=== PATIENT | female | born 1940 | race Caucasian/White ===

== ENCOUNTER 2016-09-20 09:41 | Emergency (ER) | payer MEDICARE, MEDICAID ==
[2016-09-20 09:59] VITALS: BP 153/53
--- NOTE | 2016-09-20 10:14 | UC ---
Minor Trauma HPI - HPI Summary HPI Summary: Pt presents with caregiver from half[place]way. Caregiver reports that pt fell on public bus from standing position onto buttocks at 0815 this morning. Denies any pain, swelling, bleeding, swelling, or decreased ROM. - History of Current Complaint Chief Complaint: UCGeneralIllness Stated Complaint: S/P FALL Time Seen by Provider: 09/20/16 10:05 Hx Obtained From: Family/Electrician Front Hx Last Menstrual Period: n/a ?: No Onset/Duration: Sudden Onset Severity Currently: None Mechanism Of Injury: Fall From A Standing Position Aggravating Factor(s): Nothing - Allergies/Home Medications Allergies/Adverse Reactions: Allergies Allergy/AdvReac Type Severity Reaction Status Date / Time No Known Allergies Allergy Verified 09/20/16 09:56 PMH/Surg Hx/FS Hx/Imm Hx Previously Healthy: Yes Endocrine History Of: Reports: Thyroid Disease Cardiovascular History Of: Reports: Cardiac Disorders - pacemaker, A fib, moderat enlarged heart. GI/ History Of: Denies: Gastroesophageal Reflux - Surgical History Surgical History: Yes Surgery Procedure, Year, and Place: D and C 1983, 1988, pacemaker 2007, laminectomy 2007 for cyst - Family History Known Family History: Positive: Unknown, Other - colon cancer - Social History Occupation: Disabled Lives: [facility] Alcohol Use: None Substance Use Type: None Smoking Status (MU): Never Smoked Tobacco Have You Smoked in the Last Year: No - Immunization History Most Recent Influenza Vaccination: 2014 Review of Systems Constitutional: Negative Skin: Rash - buttocks Eyes: Negative ENT: Negative Respiratory: Negative Cardiovascular: Negative Gastrointestinal: Negative Genitourinary: Negative Motor: Decreased ROM - bilateral lower extremities Neurovascular: Negative Musculoskeletal: Decreased ROM - bilateral lower extremities Neurological: Negative Psychological: Negative All Other Systems Reviewed And Are Negative: Yes Physical Exam Triage Information Reviewed: Yes Appearance: Well-Appearing Vital Signs: Initial Vital Signs Temp 98.6 F 09/20/16 09:49 Pulse 69 09/20/16 09:49 Resp 20 09/20/16 09:49 BP 153/53 09/20/16 09:49 Pulse Ox 97 09/20/16 09:49 Vital Signs Reviewed: Yes Respiratory Exam: Normal Cardiovascular Exam: Normal, Other - has a pacemaker left upper anterior chest wall Musculoskeletal Exam: Other Musculoskeletal: Positive: Strength Limited @ - bilateral lower extremities, ROM Limited @ - bialteral lower extremities Neurological Exam: Other Neurological: Positive: Other: - MR Psychological Exam: Other Psychological: Positive: Other: - stabel as per pre-existing Skin: Positive: Other - minor erythema buttocks, barrier cream applied prior to examination Minor Trauma Course/Dx - Course Course Of Treatment: continue to monitor for bruising, change in function, Decrease in ROM and/or complaints of increasing pain. - Differential Dx/Diagnosis Differential Diagnosis/HQI/PQRI: Contusion(s) Provider Diagnoses: contusion buttocks s/p fall Discharge - Discharge Plan Condition: Stable Disposition: HOME Patient Education Materials: Contusion in Adults (ED) Referrals: Jaclyn Teran PA [Primary Care Provider] -
== END 2016-09-20 10:20 | disposition home or self-care (01) ==
LOC: UCCORT 09:41
DX: S30.0XXA Contusion of lower back and pelvis, initial encounter (principal); W19.XXXA Unspecified fall, initial encounter; Y93.89 Activity, other specified; Y92.811 Bus as the place of occurrence of the external cause; Z95.0 Presence of cardiac pacemaker; I48.91 Unspecified atrial fibrillation
CPT/HCPCS: 99212; G0463

== ENCOUNTER 2017-02-21 14:34 | Emergency (ER) | payer MEDICARE, MEDICAID ==
--- NOTE | 2017-02-21 15:11 | UC ---
Minor Trauma HPI - HPI Summary HPI Summary: 76 yo female fell out of WC earlier today c/o bilateral knee pain may have also hit head no LOC - History of Current Complaint Chief Complaint: UCLowerExtremity Stated Complaint: FALL-KNEE PAIN Time Seen by Provider: 02/21/17 14:44 Hx Obtained From: Patient, Family/Locker Operator Hx Last Menstrual Period: n/a Onset/Duration: Sudden Onset Onset Of Pain: Immediate Severity Initially: Mild Severity Currently: Mild Pain Intensity: 4 Pain Scale Used: 0-10 Numeric Mechanism Of Injury: Fall From Height Of: - fall from seated position Aggravating Factor(s): Nothing, Coughing - Allergies/Home Medications Allergies/Adverse Reactions: Allergies Allergy/AdvReac Type Severity Reaction Status Date / Time No Known Allergies Allergy Verified 09/20/16 09:56 PMH/Surg Hx/FS Hx/Imm Hx Endocrine History: Thyroid Disease Cardiovascular History: Hypertension GI/ History: Gastroesophageal Reflux Psychological History: Anxiety, Depression, Other - MR Other Psychological History: MR - Surgical History Surgical History: Yes Surgery Procedure, Year, and Place: D and C 1983, 1988, pacemaker 2007, laminectomy 2007 for cyst - Family History Known Family History: Positive: Unknown, Other - colon cancer - Social History Alcohol Use: None Substance Use Type: None Smoking Status (MU): Never Smoked Tobacco Have You Smoked in the Last Year: No - Immunization History Most Recent Influenza Vaccination: 2014 Review of Systems Constitutional: Negative Skin: Negative Eyes: Negative ENT: Negative Respiratory: Negative Cardiovascular: Negative Gastrointestinal: Negative Genitourinary: Negative Motor: Negative Neurovascular: Negative Musculoskeletal: Arthralgia Neurological: Negative Psychological: Negative All Other Systems Reviewed And Are Negative: Yes Physical Exam Triage Information Reviewed: Yes Appearance: Well-Appearing, No Pain Distress, Well-Nourished Vital Signs: Initial Vital Signs Temp 99.1 F 02/21/17 14:39 Pulse 68 02/21/17 14:39 Resp 16 02/21/17 14:39 BP 170/116 02/21/17 14:39 Pulse Ox 98 02/21/17 14:39 Vital Signs Reviewed: Yes Eyes: Positive: Conjunctiva Clear, Other: - eomi/perrl ENT: Positive: Hearing grossly normal. Negative: Nasal congestion, Nasal drainage, Trismus, Muffled/hoarse voice Neck: Positive: Supple, Nontender, No Lymphadenopathy Respiratory: Positive: Lungs clear, Normal breath sounds, No respiratory distress Cardiovascular: Positive: RRR, No Murmur Musculoskeletal: Positive: ROM Intact, No Edema, Other: - able to ambulate without pain Skin Exam: Normal Minor Trauma Course/Dx - Differential Dx/Diagnosis Provider Diagnoses: bilateral knee contusions Discharge - Discharge Plan Condition: Stable Disposition: HOME Patient Education Materials: Contusion in Adults (ED) Referrals: Jaclyn Teran PA [Primary Care Provider] - 2 Days () Additional Instructions: bp high here recheck in 2 days with PMD
[2017-02-21 15:13] VITALS: BP 121/64
== END 2017-02-21 15:20 | disposition home or self-care (01) ==
LOC: UCCORT 14:34
DX: S80.02XA Contusion of left knee, initial encounter (principal); S80.01XA Contusion of right knee, initial encounter; W05.0XXA Fall from non-moving wheelchair, initial encounter; Y93.9 Activity, unspecified; Y92.9 Unspecified place or not applicable; E07.9 Disorder of thyroid, unspecified; I10 Essential (primary) hypertension; K21.9 Gastro-esophageal reflux disease without esophagitis; F41.9 Anxiety disorder, unspecified; F32.9 Major depressive disorder, single episode, unspecified; F79 Unspecified intellectual disabilities; Z95.0 Presence of cardiac pacemaker
CPT/HCPCS: 99212; G0463

== ENCOUNTER 2017-05-12 11:01 | Emergency (ER) | payer MEDICARE, MEDICAID ==
--- NOTE | 2017-05-12 11:39 | UC ---
Minor Trauma HPI - HPI Summary HPI Summary: Fall out of wheelchair, found on floor. No obvious injury. - History of Current Complaint Chief Complaint: UCGeneralIllness Stated Complaint: S/P FALL Hx Obtained From: Patient, Family/Gear Technician ?: No Onset/Duration: Sudden Onset - found on floor at 10:15. Patient denies injury or pain. Severity Currently: None Mechanism Of Injury: Blunt Trauma - fall from wheelchair. Aggravating Factor(s): Nothing Alleviating Factor(s): Nothing Associated Signs And Symptoms: Negative: Loss Of Consciousness, Ecchymosis, Swelling - Risk Factors Penetrating Injury Risk Factors: Negative - Allergies/Home Medications Allergies/Adverse Reactions: Allergies Allergy/AdvReac Type Severity Reaction Status Date / Time Adhesive Tape AdvReac Unknown Verified 05/12/17 11:21 Reaction Details Metal Jewelry AdvReac Unknown Uncoded 05/12/17 11:21 Reaction Details Home Medications: Home Medications Acetaminophen TAB* [Tylenol TAB*] 650 mg PO Q4H PRN 05/12/17 [History Confirmed 05/12/17] Al Hydrox/Mg Hydrox/Americo BULK* [Mylanta - BULK BOT*] 30 ml PO Q4H PRN 05/12/17 [ History Confirmed 05/12/17] Aspirin Low Dose CHEW TAB* [Aspirin Low Dose TAB*] 81 mg PO 30 05/12/17 [ History Confirmed 05/12/17] Calcium Carbonate-Cholecalcife [Calcium 600 + D 600-200 mg-Unit] 1 tab PO 629, 199905/12/17 [History Confirmed 05/12/17] Cholecalciferol [Vitamin D 400] 800 unit PO 30 05/12/17 [History Confirmed 10/27] Digoxin TAB* [Lanoxin TAB*] 0.125 mg PO 30 05/12/17 [History Confirmed ] Docusate CAP* [Colace Cap*] 100 mg PO 629,199905/12/17 [History Confirmed 10/27] Esomeprazole(NF) [NexIUM(NF)] 40 mg PO 30 05/12/17 [History Confirmed 05/12/17 ] Fesoterodine (NF) [Toviaz (NF)] 4 mg PO 30 05/12/17 [History Confirmed ] GuaiFENesin DM* [Robitussin DM*] 10 ml PO Q4H PRN 05/12/17 [History Confirmed ] Hydrocortisone 1% CREAM* [Hytone Cream 1%*] 1 applic TOPICAL BID PRN 05/12/17 [ History Confirmed 05/12/17] Hydrocortisone SUPP* [Anusol HC Supp*] 1 applic MI BID PRN 05/12/17 [History Confirmed 05/12/17] Ibandronate TAB(NF) [Boniva(NF)] 150 mg PO Q30D 05/12/17 [History Confirmed 10/27] Levothyroxine TAB* [Synthroid TAB*] 125 mcg PO 1500 05/12/17 [History Confirmed 05/12/17] LoraTADine TAB(NF) [Claritin 10 MG TAB(NF)] 10 mg PO 30 05/12/17 [History Confirmed 05/12/17] Meloxicam(NF) [Mobic(NF)] 7.5 [place] 6[address]05/12/17 [History Confirmed 05/12/17] Metoprolol Succinate XL TAB* [Toprol XL TAB*] 100 mg PO 199905/12/17 [History Confirmed 05/12/17] Multivitamins/Minerals TAB* [Thera M Plus TAB*] 1 [place] [address]/12/17 [History Confirmed 05/12/17] Mupirocin 2% OINT* [Bactroban 2 % Oint*] 1 applic TOPICAL TID PRN 05/12/17 [ History Confirmed 05/12/17] Pseudoephedrine TAB* [Sudafed TAB*] 30 mg PO Q4H PRN 05/12/17 [History Confirmed 05/12/17] Sertraline* [Zoloft*] 50 mg PO 199905/12/17 [History Confirmed 05/12/17] Sertraline* [Zoloft*] 100 mg PO 199905/12/17 [History Confirmed 05/12/17] Simvastatin TAB(NF) [Zocor(NF)] 20 mg PO 199905/12/17 [History Confirmed ] clonazePAM TAB(*) [KlonoPIN TAB(*)] 0.5 mg PO BID 05/12/17 [History Confirmed ] PMH/Surg Hx/FS Hx/Imm Hx Endocrine History: Other - Osteoporosis. Other Endocrine History: Osteoporosis Cardiovascular History: Atrial Fibrillation Neurological History: Other - Mental retardation. Other Neurological History: Mental retardation - Surgical History Surgical History: Yes - Pacemaker - Family History Known Family History: Positive: Unknown - Social History Occupation: Disabled Lives: Long-Term Alcohol Use: None Substance Use Type: None Smoking Status (MU): Unknown if Ever Smoked Have You Smoked in the Last Year: No - Immunization History Most Recent Influenza Vaccination: 06/27/16 Most Recent Tetanus Shot: 03/01/15 Most Recent Pneumonia Vaccination: 07/13/16 Review of Systems All Other Systems Reviewed And Are Negative: Yes Physical Exam Triage Information Reviewed: Yes Appearance: Well-Appearing, No Pain Distress, Well-Nourished Vital Signs: Initial Vital Signs Temp 98.7 F 05/12/17 11:10 Pulse 64 05/12/17 11:10 Resp 18 05/12/17 11:10 Pulse Ox 100 05/12/17 11:10 Vital Signs Reviewed: Yes Neck exam: Normal Respiratory Exam: Normal Cardiovascular Exam: Normal Abdominal Exam: Normal Bowel Sounds: Positive: Present Musculoskeletal: Positive: ROM Limited @ - Neck with poor posture in wheelchair. Neurological Exam: Normal Psychological Exam: Normal Skin Exam: Normal Minor Trauma Course/Dx - Differential Dx/Diagnosis Differential Diagnosis/HQI/PQRI: Abrasion(s), Contusion(s), Strain Provider Diagnoses: Minor fall, no injury Discharge - Discharge Plan Condition: Stable Disposition: HOME Patient Education Materials: Fall Prevention (ED)
== END 2017-05-12 12:11 | disposition home or self-care (01) ==
LOC: EDBD → UCCORT 11:01 → MERGE 11:01 → UCCORT 12:11
DX: Z03.89 Encounter for observation for other suspected diseases and conditions ruled out (principal); W05.0XXA Fall from non-moving wheelchair, initial encounter; Y93.9 Activity, unspecified; Y92.9 Unspecified place or not applicable; Y99.9 Unspecified external cause status; M81.0 Age-related osteoporosis without current pathological fracture; I48.91 Unspecified atrial fibrillation; F79 Unspecified intellectual disabilities; Z95.0 Presence of cardiac pacemaker
CPT/HCPCS: 99202; G0463

== ENCOUNTER 2017-05-27 12:37 | Emergency (ER) | payer MEDICARE, MEDICAID ==
--- NOTE | 2017-05-27 14:55 | UC ---
Skin Complaint HPI - HPI Summary HPI Summary: patient in a correction have a rash on buttocks and hips - History of Current Complaint Chief Complaint: UCSkin Time Seen by Provider: 05/27/17 14:48 Stated Complaint: RASH Hx Obtained From: Family/Regional Economic Liaison Hx From Patient Unobtainable Due To: Altered Mental Status - MR Hx Last Menstrual Period: n/a ?: No Onset/Duration: Gradual Onset, Lasting Days Timing: Constant Onset Severity: Mild Current Severity: Mild Location: Discrete - right buttock and both hops Aggravating: Nothing Alleviating: Nothing Associated Signs & Symptoms: Positive: Rash - red circular dry rash with central clearing--multiple spots largest about quarter size - Allergy/Home Medications Allergies/Adverse Reactions: Allergies Allergy/AdvReac Type Severity Reaction Status Date / Time Adhesive Tape AdvReac Unknown Verified 05/27/17 14:56 Reaction Details Metal Jewelry AdvReac Unknown Uncoded 05/27/17 14:56 Reaction Details Review of Systems Constitutional: Negative Skin: Rash Eyes: Negative ENT: Negative Respiratory: Negative Cardiovascular: Negative Gastrointestinal: Negative Genitourinary: Negative Motor: Negative Neurovascular: Negative Musculoskeletal: Negative Neurological: Negative Psychological: Negative Is Patient Immunocompromised?: No All Other Systems Reviewed And Are Negative: Yes PMH/Surg Hx/FS Hx/Imm Hx Previously Healthy: No Endocrine History: Dyslipidemia Cardiovascular History: Cardiac Disease, Congestive Heart Failure Respiratory History: Asthma GI/ History: Gastroesophageal Reflux Neurological History: Dementia, Other Other Neurological History: Developmentally Disabled Psychological History: Anxiety, Depression - Surgical History Surgical History: Yes - Pacemaker Surgery Procedure, Year, and Place: D and C 1983, 1988, pacemaker 2007, laminectomy 2007 for cyst - Family History Known Family History: Positive: Unknown, Other - colon cancer - Social History Occupation: Disabled Lives: [facility] Alcohol Use: None Substance Use Type: None Smoking Status (MU): Unknown if Ever Smoked Have You Smoked in the Last Year: No - Immunization History Most Recent Influenza Vaccination: 06/27/16 Most Recent Tetanus Shot: 03/01/15 Most Recent Pneumonia Vaccination: 07/13/16 Physical Exam Triage Information Reviewed: Yes Completion Of Physical Exam Limited Due To: Dementia, Other - MR Appearance: No Pain Distress, Well-Nourished, Ill-Appearing - Chronic disability Vital Signs Reviewed: Yes Eye Exam: Normal Eyes: Positive: Conjunctiva Clear ENT Exam: Normal ENT: Positive: Normal ENT inspection, Hearing grossly normal, TMs normal. Negative: Nasal congestion, Nasal drainage, Trismus, Muffled/hoarse voice Neck exam: Normal Neck: Positive: Supple, Nontender Respiratory Exam: Normal Respiratory: Positive: Chest non-tender, No respiratory distress, No accessory muscle use Cardiovascular Exam: Normal Cardiovascular: Positive: Pulses Normal, Brisk Capillary Refill Musculoskeletal Exam: Normal Musculoskeletal: Positive: Strength Intact, ROM Intact, No Edema Neurological Exam: Other Neurological: Positive: Other: - Normal to her baseline Psychological Exam: Other Psychological: Positive: Decreased Age Appropriate Behavior, Other: - normal to her baseline Skin Exam: Other Skin: Positive: Other - red dry circular rash with central clearing left buttock and hip Course/Dx - Course Course Of Treatment: lotrisone bid for up to 2 weeks, mild soap and water wash follow with pcp - Differential Diagnoses - Skin Complaint Differential Diagnoses: Cellulitis, Contact Dermatitis, Impetigo, Local Allergic Reaction, Scabies, Tinea - Diagnoses Provider Diagnoses: Tinea left buttock Discharge - Discharge Plan Condition: Stable Disposition: HOME Prescriptions: Clotrimazole/Betamethasone* [Lotrisone Cream*] 1 applic TOPICAL BID #60 gm Patient Education Materials: Tinea Corporis (ED) Referrals: Jaclyn Teran PA [Primary Care Provider] - If Needed
[2017-05-27 14:56] VITALS: BP 144/111
== END 2017-05-27 15:03 | disposition home or self-care (01) ==
LOC: UCCORT 12:37
DX: B35.4 Tinea corporis (principal); E78.5 Hyperlipidemia, unspecified; F03.90 Unspecified dementia, unspecified severity, without behavioral disturbance, psychotic disturbance, mood disturbance, and anxiety; Z91.048 Other nonmedicinal substance allergy status; Z95.0 Presence of cardiac pacemaker
CPT/HCPCS: 99212; G0463

== ENCOUNTER 2017-08-25 15:50 | Emergency (ER) | payer MEDICARE, MEDICAID ==
[2017-08-25 16:13] VITALS: BP 139/48
--- NOTE | 2017-08-25 16:24 | UC ---
Hip/Pelvis Pain - HPI Summary HPI Summary: fell/lowered to floor by a staff member at the alf about 1/2 hour prior to arrival. gait steady does have some pain with palpation - History Of Current Complaint Chief Complaint: UCLowerExtremity Stated Complaint: FALL (HX OSTEOPOROSIS) Time Seen by Provider: 08/25/17 16:04 Hx Obtained From: Patient Hx Last Menstrual Period: n/a ?: No Mechanism Of Injury: fall Onset/Duration: Sudden Onset, Lasting Hours - 1, Still Present Timing: Constant Severity Initially: Mild Location: Discrete At: - right hip Character Of Pain: Unable To Describe Aggravating Factor(s): Nothing Alleviating Factor(s): Nothing Associated Signs And Symptoms: Positive: Negative - Allergies/Home Medications Allergies/Adverse Reactions: Allergies Allergy/AdvReac Type Severity Reaction Status Date / Time Adhesive Tape AdvReac Unknown Verified 08/25/17 15:57 Reaction Details Metal Jewelry AdvReac Unknown Uncoded 08/25/17 15:57 Reaction Details Home Medications: Home Medications Alendronate Sodium [Fosamax-] 70 mg PO WEEKLY 08/25/17 [History Confirmed ] Aspirin [Aspirin 81 MG TAB] 81 mg PO DAILY 08/25/17 [History Confirmed 08/25/17] Calcium Carbonate-Cholecalcife [Calcium 600 + D 600-200 mg-Unit] 1 tab PO DAILY 08/25/17 [History Confirmed 08/25/17] Cholecalciferol TAB* [Vitamin D TAB*] 400 unit PO DAILY 08/25/17 [History Confirmed 08/25/17] Digoxin TAB* [Lanoxin TAB*] 0.125 mg PO DAILY 08/25/17 [History Confirmed ] Docusate CAP* [Colace Cap*] 100 mg PO BID 08/25/17 [History Confirmed 08/25/17] Docusate CAP* [Colace Cap*] 200 mg PO DAILY 08/25/17 [History Confirmed 08/25/17 ] Esomeprazole Magnesium [Nexium] 40 mg PO DAILY 08/25/17 [History Confirmed 08/25] Fesoterodine (NF) [Toviaz (NF)] 4 mg PO DAILY 08/25/17 [History Confirmed ] Levothyroxine TAB* [Synthroid TAB*] 125 mcg PO DAILY 08/25/17 [History Confirmed 08/25/17] Loratadine [Claritin 10 MG CAP] 10 mg PO DAILY 08/25/17 [History Confirmed 08/25] Magnesium Hydroxide LIQ* [Milk of Magnesia LIQ*] 30 ml PO BID PRN 08/25/17 [ History Confirmed 08/25/17] Meloxicam 7.5 mg PO DAILY 08/25/17 [History Confirmed 08/25/17] Metoprolol Succinate [Metoprolol Succinate ER] 100 mg PO DAILY 08/25/17 [ History Confirmed 08/25/17] Multivitamins/Minerals TAB* [Theragran/minerals TAB*] 1 tab PO DAILY 08/25/17 [ History Confirmed 08/25/17] Sertraline* [Zoloft*] 150 mg PO BEDTIME 08/25/17 [History Confirmed 08/25/17] Simvastatin [Flolipid] 20 mg PO DAILY 08/25/17 [History Confirmed 08/25/17] clonazePAM TAB(*) [KlonoPIN TAB(*)] 0.5 mg PO BID 08/25/17 [History Confirmed ] PMH/Surg Hx/FS Hx/Imm Hx Previously Healthy: No - MR/DD Endocrine History: Hypothyroidism, Dyslipidemia Cardiovascular History: Hypertension, Atrial Fibrillation GI/ History: Gastroesophageal Reflux - Surgical History Surgical History: Yes Surgery Procedure, Year, and Place: D and C 1983, 1988, pacemaker 2007, laminectomy 2007 for cyst - Family History Known Family History: Positive: Unknown, Other - colon cancer - Social History Occupation: Disabled Lives: [facility] Alcohol Use: None Substance Use Type: None Smoking Status (MU): Unknown if Ever Smoked Have You Smoked in the Last Year: No - Immunization History Most Recent Influenza Vaccination: 06/26 Most Recent Tetanus Shot: 03/01/15 Most Recent Pneumonia Vaccination: 07/13/16 Review of Systems Constitutional: Negative Skin: Negative Eyes: Negative ENT: Negative Respiratory: Negative Cardiovascular: Negative Gastrointestinal: Negative Genitourinary: Negative Motor: Negative Neurovascular: Negative Musculoskeletal: Arthralgia - lowered to floor on to right hip/pelvis her to get evaluated Neurological: Negative Psychological: Negative Is Patient Immunocompromised?: No All Other Systems Reviewed And Are Negative: Yes Physical Exam Triage Information Reviewed: Yes Appearance: Well-Appearing - baseline, No Pain Distress, Well-Nourished Vital Signs: Initial Vital Signs Temp 98.9 F 08/25/17 15:57 Pulse 64 08/25/17 15:57 Resp 18 08/25/17 15:57 BP 139/48 08/25/17 15:57 Pulse Ox 100 08/25/17 15:57 Vital Signs Reviewed: Yes Eye Exam: Normal Eyes: Positive: Conjunctiva Clear ENT Exam: Normal ENT: Positive: Normal ENT inspection, Hearing grossly normal. Negative: Nasal congestion, Nasal drainage, TMs normal, Trismus, Muffled voice, Hoarse voice, Dental tenderness, Sinus tenderness Dental Exam: Normal Neck exam: Normal Neck: Positive: Supple, Nontender, No Lymphadenopathy Respiratory Exam: Normal Respiratory: Positive: Chest non-tender, Lungs clear, Normal breath sounds, No respiratory distress, No accessory muscle use Cardiovascular Exam: Normal Cardiovascular: Positive: RRR, No Murmur, Pulses Normal, Brisk Capillary Refill Abdominal Exam: Normal Abdomen Description: Positive: Nontender, No Organomegaly, Soft Bowel Sounds: Positive: Present Musculoskeletal Exam: Normal Musculoskeletal: Positive: Strength Intact, ROM Intact, No Edema Neurological Exam: Normal Neurological: Positive: Alert, Muscle Tone Normal Psychological Exam: Normal Skin Exam: Normal Diagnostics - Radiology No standard instances Xray Interpretation: No Acute Changes Radiology Interpretation Completed By: ED Physician, Radiologist Hip Injury Course/Dx - Course Course Of Treatment: tylenol ice follow with pcp prn - Differential Dx/Diagnosis Provider Diagnoses: Contusion right hip Discharge - Discharge Plan Condition: Stable Disposition: HOME Patient Education Materials: Fall Prevention for Older Adults (ED), Hip Contusion (ED) Referrals: Jaclyn Teran PA [Primary Care Provider] - 1 Day
--- NOTE | 2017-08-25 17:28 | RAD ---
INDICATION: Fall. Pain. COMPARISON: Right hip May 28, 2015 TECHNIQUE: An AP view of the pelvis and AP views of the hip in neutral and abducted position were obtained FINDINGS: Bones: There are no acute bony findings. Joint spaces: The hips articulate normally. The joint spaces are preserved. SI joints/symphysis: The SI joints and symphysis are intact. Other: None IMPRESSION: NO ACUTE BONY FINDINGS.
== END 2017-08-25 17:45 | disposition home or self-care (01) ==
LOC: UCCORT 15:50
DX: S70.01XA Contusion of right hip, initial encounter (principal); W19.XXXA Unspecified fall, initial encounter; Y93.9 Activity, unspecified; Y92.129 Unspecified place in nursing home as the place of occurrence of the external cause; Y99.9 Unspecified external cause status
CPT/HCPCS: 73523; 99212; G0463

== ENCOUNTER 2017-11-16 18:55 | Emergency (ER) | payer MEDICARE, MEDICAID ==
[2017-11-16 20:09] VITALS: BP 142/70
--- NOTE | 2017-11-16 20:22 | UC ---
Throat Pain/Nasal Edson HPI - HPI Summary HPI Summary: Pt is accompanied by caregiver. cutter and edge trimmer reports sudden onset of nasal congestion, cough, sore throat and raspy voice beginning this morning. - History of Current Complaint Chief Complaint: UCRespiratory Stated Complaint: COUGH, NO VOICE Time Seen by Provider: 11/16/17 20:17 Hx Obtained From: Family/Binman Hx Last Menstrual Period: n/a ?: No Onset/Duration: Sudden Onset, Lasting Hours, Still Present Severity: Mild Pain Intensity: 0 Cough: Nonproductive Associated Signs & Symptoms: Positive: Dysphagia, Hoarseness - Epiglottits Risk Factors Epiglottis Risk Factors: Sudden Onset - Allergies/Home Medications Allergies/Adverse Reactions: Allergies Allergy/AdvReac Type Severity Reaction Status Date / Time Adhesive Tape AdvReac Unknown Verified 11/16/17 20:06 Reaction Details Metal Jewelry AdvReac Unknown Uncoded 11/16/17 20:06 Reaction Details Home Medications: Home Medications Fesoterodine (NF) [Toviaz (NF)] 4 mg PO DAILY 11/16/17 [History Confirmed ] PMH/Surg Hx/FS Hx/Imm Hx Previously Healthy: No - NO see PMH Cardiovascular History: Cardiac Disease - Surgical History Surgical History: Yes Surgery Procedure, Year, and Place: D and C 1983, 1988, pacemaker 2007, laminectomy 2007 for cyst - Family History Known Family History: Positive: Unknown, Other - colon cancer - Social History Occupation: Disabled Lives: Assisted Alcohol Use: None Substance Use Type: None Smoking Status (MU): Unknown if Ever Smoked Have You Smoked in the Last Year: No - Immunization History Most Recent Influenza Vaccination: 06/26 Most Recent Tetanus Shot: 03/01/15 Most Recent Pneumonia Vaccination: 07/13/16 Review of Systems Constitutional: Negative Skin: Negative Eyes: Negative ENT: Sore Throat, Sinus Congestion Respiratory: Cough Cardiovascular: Negative Gastrointestinal: Negative Motor: Negative Neurovascular: Negative Musculoskeletal: Negative Neurological: Negative Psychological: Negative Is Patient Immunocompromised?: No All Other Systems Reviewed And Are Negative: Yes Physical Exam Triage Information Reviewed: Yes Appearance: Well-Appearing Vital Signs: Initial Vital Signs Temp 98 F 11/16/17 19:59 Pulse 79 11/16/17 19:59 Resp 20 11/16/17 19:59 BP 142/70 11/16/17 19:59 Pulse Ox 95 11/16/17 19:59 Vital Signs Reviewed: Yes Eye Exam: Normal ENT Exam: Other ENT: Positive: Pharyngeal erythema, Nasal congestion Dental Exam: Normal Neck exam: Normal Respiratory Exam: Normal Respiratory: Positive: Lungs clear Cardiovascular Exam: Normal Musculoskeletal Exam: Normal Neurological Exam: Normal Psychological Exam: Normal Skin Exam: Normal Throat Pain/Nasal Course/Dx - Differential Dx/Diagnosis Differential Diagnosis/HQI/PQRI: Influenza, Pharyngitis, URI Provider Diagnoses: URI Discharge - Discharge Plan Condition: Stable Disposition: HOME Patient Education Materials: Viral Syndrome (ED) Referrals: Jaclyn Teran PA [Primary Care Provider] - If Needed Additional Instructions: Please use Eric PEREZ as needed.
== END 2017-11-16 20:36 | disposition home or self-care (01) ==
LOC: UCCORT 18:55
DX: J06.9 Acute upper respiratory infection, unspecified (principal)
CPT/HCPCS: 99212; G0463

== ENCOUNTER 2018-05-08 20:37 | Emergency (ER) | payer MEDICARE, MEDICAID ==
--- NOTE | 2018-05-08 21:04 | ED ---
Respiratory - HPI Summary HPI Summary: A 77 y/o female JUAN ANTONIO presents to ED s/p choking on foreign body. In the ED room , the patient has a pulse of 73 BPM, O2 saturation of 95% and blood pressure of 137/59. As per nurse, EMS stated that the patient was sitting down eating a steak dinner when she accidentally started choking on a piece. As per triage, "Pt was with fdc staff a local restaurant when she started choking while eating steak. Pt without resp difficulty, drooling or diff swallowing at present. Pt presents at baseline per fdc staff". According to the patient, she has a headache. Patient is a poor historian and not answering the MD's questions. As per witness (care staff), the patient was otherwise fine until she started choking on her food. They were eating their food when suddenly she started choking and spiting up material through nose and mouth. She was concerned and brought her here. - History of Current Complaint Chief Complaint: EDUpperRespComplaint Stated Complaint: COUGH Time Seen by Provider: 05/08/18 20:49 Hx Obtained From: EMS, Other: - Nurse Onset/Duration: Sudden Onset, Lasting Minutes Timing: Constant Current Severity: None Pain Intensity: 0 Sputum Amount: None Aggravating Factor(s): Nothing Alleviating Factor(s): Nothing Associated Signs and Symptoms: Negative - Allergy/Home Medications Allergies/Adverse Reactions: Allergies Allergy/AdvReac Type Severity Reaction Status Date / Time Adhesive Tape AdvReac Unknown Verified 11/16/17 20:06 Reaction Details Metal Jewelry AdvReac Unknown Uncoded 11/16/17 20:06 Reaction Details PMH/Surg Hx/FS Hx/Imm Hx Endocrine/Hematology History: Reports: Hx Thyroid Disease - Hypothyroidism Cardiovascular History: Reports: Hx Hypertension - Surgical History Surgery Procedure, Year, and Place: D and C 1983, 1988, pacemaker 2007, laminectomy 2007 for cyst Infectious Disease History: No Infectious Disease History: Reports: 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 Denies: Hx Shingles, Traveled Outside the [place] in Last 30 Days - Family History Known Family History: Positive: Other - colon cancer - Social History Alcohol Use: None Substance Use Type: Reports: None Smoking Status (MU): Unknown if Ever Smoked Have You Smoked in the Last Year: No Review of Systems Negative: Fever Positive: Other - POSITIVE: Choking (RESOLVED) Positive: Headache All Other Systems Reviewed And Are Negative: Yes Physical Exam - Summary Physical Exam Summary: Appearance: Well appearing, no pain distress Skin: warm, dry, reflects adequate perfusion Head/face: normal Eyes: EOMI, EMILY ENT: normal Neck: supple, non-tender Respiratory: CTA, breath sounds present Cardiovascular: RRR, pulses symmetrical Abdomen: non-tender, soft Bowel: present Musculoskeletal: normal, strength/ROM intact Neuro: normal, sensory motor intact, A&Ox3 Triage Information Reviewed: Yes Vital Signs On Initial Exam: Initial Vitals Temp Pulse Resp BP Pulse Ox 98.4 F 72 16 137/59 95 05/08/18 20:44 05/08/18 20:44 05/08/18 20:44 05/08/18 20:44 05/08/18 20:44 Vital Signs Reviewed: Yes Diagnostics - Vital Signs Vital Signs Temp Pulse Resp BP Pulse Ox 05/08/18 20:44 98.4 F 72 16 137/59 95 - Laboratory Lab Statement: Any lab studies that have been ordered have been reviewed, and results considered in the medical decision making process. Disposition - Course Course Of Treatment: A 77 y/o female JUAN ANTONIO presents to ED s/p choking on foreign body. No laboratory scans or blood work was done. In the ED course, the patient recieved no medications. It was discussed with care staff who witnessed the choking incident that the patient was otherwise normal before the event. She stated that the patient seems normal and she feels fine now. In the ED room, the patient seems fine and her vitals are normal. Patient will be discharged with a diagnosis of choking. Patient is to follow up with PCP in 2-3 days. Patient is agreeable with this plan. - Differential Dx - Cardiopulmonary Differential Diagnoses - Cardiopulmonary: Other - choking episode - Diagnoses Provider Diagnoses: Choking Discharge - Sign-Out/Discharge Documenting (check all that apply): Patient Departure - DISCHARGE - Discharge Plan Condition: Stable Disposition: HOME Patient Education Materials: Esophageal Foreign Body (ED), Foreign Body in Pharynx (ED) Referrals: Jaclyn Teran PA [Primary Care Provider] - 3 Days Additional Instructions: FOLLOW UP WITH PRIMARY CARE IN 2-3 DAYS. RETURN TO ED FOR ANY NEW OR WORSENING SYMPTOMS. - Billing Disposition and Condition Condition: STABLE Disposition: Home - Attestation Statements Document Initiated by Scribe: Yes Documenting Scribe: Rush Joaquin Provider For Whom Scribe is Documenting (Include Credential): Juancho Ghotra Scribe Attestation: Rush Avila, scribed for Juancho Ghotra on 05/08/18 at 2144. Scribe Documentation Reviewed: Yes Provider Attestation: The documentation as recorded by the ettaibeRush accurately reflects the service I personally performed and the decisions made by Juancho hurtado
[2018-05-08 22:12] VITALS: BP 112/59
== END 2018-05-08 21:45 | disposition home or self-care (01) ==
LOC: ED 20:37
DX: R09.89 Other specified symptoms and signs involving the circulatory and respiratory systems (principal); R51 Headache
CPT/HCPCS: 99281

== ENCOUNTER 2018-06-05 12:09 | Emergency (ER) | payer MEDICARE, MEDICAID ==
[2018-06-05 13:18] VITALS: BP 132/68
--- NOTE | 2018-06-05 13:57 | UC ---
UC General HPI - HPI Summary HPI Summary: Patient presents from her [facility] with her financial aid coordinator. Patient is unable to give history due to her MR. Her financial aid coordinator notes that last Sunday the patient had some cloudy foul-smelling urine. As a result, a culture was sent and came back negative. Project Superintendent states that somewhere along the line there was some miscommunication and the patient's primary care called in an order for hydrocortisone cream to be applied to her external urethral and vaginal area. Project Superintendent states that patient has no rash or irritation to these areas. They have brought the patient here for a recheck and possibly get the order for the hydrocortisone cream discontinued. Project Superintendent again denies any associated rash any irritation to her genitourinary and rectal areas and states that the patient is fine. - History of Current Complaint Chief Complaint: UCGU Stated Complaint: SKIN COMPLAINT (CLARIFICATION FOR CREAM) Time Seen by Provider: 06/05/18 13:08 Hx Obtained From: Family/Project Superintendent Hx Last Menstrual Period: n/a Pain Intensity: 0 - Allergy/Home Medications Allergies/Adverse Reactions: Allergies Allergy/AdvReac Type Severity Reaction Status Date / Time Adhesive Tape AdvReac Unknown Verified 11/16/17 20:06 Reaction Details Metal Jewelry AdvReac Unknown Uncoded 11/16/17 20:06 Reaction Details Home Medications: Home Medications Acetaminophen TAB* [Tylenol TAB*] 650 mg PO Q4H PRN MDD 8 tabs 06/05/18 [ History Confirmed 06/05/18] Al Hydrox/Mg Hydrox/Americo BULK* [Mylanta - BULK BOT*] 15 ml PO Q4H PRN 06/05/18 [ History Confirmed 06/05/18] Alendronate Sodium [Fosamax-] 70 mg PO WEEKLY 06/05/18 [History Confirmed ] Aspirin 81 mg CHEW TAB* [Aspirin Low Dose TAB*] 81 mg PO DAILY 06/05/18 [ History Confirmed 06/05/18] Calcium Carbonate/Vitamin D3 [Calcium 600 + Vit D Tablet] 2 tab PO DAILY MDD 90mL 06/05/18 [History Confirmed 06/05/18] Cholecalciferol TAB* [Vitamin D TAB*] 800 unit PO DAILY 06/05/18 [History Confirmed 06/05/18] Clotrimazole/Betamethasone* [Lotrisone Cream*] 1 applic TOPICAL BID PRN [History Confirmed 06/05/18] Digoxin TAB* [Lanoxin TAB*] 0.125 mg PO DAILY 06/05/18 [History Confirmed ] Docusate CAP* [Colace Cap*] 200 mg PO DAILY 06/05/18 [History Confirmed 06/05/18 ] Esomeprazole(NF) [NexIUM(NF)] 40 mg PO DAILY 06/05/18 [History Confirmed ] Fesoterodine (NF) [Toviaz (NF)] 4 mg PO DAILY 06/05/18 [History Confirmed ] GuaiFENesin DM* [Robitussin DM*] 10 ml PO Q4H PRN MDD 40mL 06/05/18 [History Confirmed 06/05/18] Hydrocortisone 1% CREAM* [Hytone Cream 1%*] 1 applic TOPICAL BID PRN 06/05/18 [ History Confirmed 06/05/18] Hydrocortisone 2.5% CREAM(NF) 1 applic FL BID PRN 06/05/18 [History Confirmed ] Levothyroxine TAB* [Synthroid TAB*] 125 mcg PO DAILY 06/05/18 [History Confirmed 06/05/18] LoraTADine TAB(NF) [Claritin 10 MG TAB(NF)] 10 mg PO DAILY 06/05/18 [History Confirmed 06/05/18] Meloxicam(NF) [Mobic(NF)] 7.5 mg PO DAILY 06/05/18 [History Confirmed 06/05/18] Metoprolol Succinate XL TAB* [Toprol XL TAB*] 25 mg PO DAILY 06/05/18 [History Confirmed 06/05/18] Multivitamins/Minerals TAB* [Theragran/minerals TAB*] 1 tab PO DAILY 06/05/18 [ History Confirmed 06/05/18] Mupirocin 2% OINT* [Bactroban 2 % Oint*] 1 applic TOPICAL TID PRN 06/05/18 [ History Confirmed 06/05/18] Pseudoephedrine TAB* [Sudafed TAB*] 60 mg PO Q4H PRN MDD 8 tabs 06/05/18 [ History Confirmed 06/05/18] Sertraline* [Zoloft*] 50 mg PO DAILY 06/05/18 [History Confirmed 06/05/18] Sertraline* [Zoloft*] 100 mg PO DAILY 06/05/18 [History Confirmed 06/05/18] Simvastatin TAB(NF) [Zocor(NF)] 20 mg PO DAILY 06/05/18 [History Confirmed 06/05] clonazePAM TAB(*) [KlonoPIN TAB(*)] 0.5 mg PO BID 06/05/18 [History Confirmed ] PMH/Surg Hx/FS Hx/Imm Hx - Additional Past Medical History Additional PMH: MR, cardiac history with pacemaker/defibrillator, Thyroid disorder. - Surgical History Surgical History: Yes Surgery Procedure, Year, and Place: D and C 1983, 1988, pacemaker 2007, laminectomy 2007 for cyst. cataract surgery (bilateral) - Family History Known Family History: Positive: Other - colon cancer - Social History Occupation: Disabled Lives: [facility] Alcohol Use: None Substance Use Type: None Smoking Status (MU): Never Smoked Tobacco Have You Smoked in the Last Year: No - Immunization History Most Recent Influenza Vaccination: 06/26 Most Recent Tetanus Shot: 03/01/15 Most Recent Pneumonia Vaccination: 07/13/16 Vaccination Up to Date: Yes Review of Systems Is Patient Immunocompromised?: No All Other Systems Reviewed And Are Negative: No - Comments Additional Review of Systems Comments: Patient has history of MR and is unable to give any information. Her financial aid coordinator denies any fever or rash and states that patient is totally fine. Physical Exam Triage Information Reviewed: Yes Appearance: Well-Appearing Vital Signs: Initial Vital Signs Temp 98.5 F 06/05/18 13:02 Pulse 74 06/05/18 13:02 Resp 19 06/05/18 13:02 BP 147/112 06/05/18 13:02 Pulse Ox 99 06/05/18 13:02 Vital Signs Reviewed: Yes Eyes: Positive: Conjunctiva Clear ENT: Positive: Pharynx normal, TMs normal. Negative: Nasal congestion, Nasal drainage Neck: Positive: Supple, Nontender, No Lymphadenopathy Respiratory: Positive: Lungs clear, Normal breath sounds Cardiovascular: Positive: RRR, No Murmur Abdomen Description: Positive: Nontender, No Organomegaly, Soft, Other: - No rectal area irritation or rash. patient has no skin breakdown. Bowel Sounds: Positive: Present Pelvic Exam: Positive: External Exam Normal Musculoskeletal: Positive: ROM Intact Neurological: Positive: Alert - Per her baseline Psychological: Positive: Age Appropriate Behavior - per her baseline Skin Exam: Normal Skin: Negative: rashes Course/Dx - Course Course Of Treatment: Patient has no urethral, denies any vaginal or rectal irritation. Her physical exam is unremarkable. I am going to discontinue the order for topical hydrocortisone to her urethral and vaginal areas. Her caretakers may resume all her prior care and medications aside from the hydrocortisone. - Differential Dx - Multi-Symptom Provider Diagnoses: Normal exam Discharge - Sign-Out/Discharge Documenting (check all that apply): Patient Departure All imaging exams completed and their final reports reviewed: No Studies - Discharge Plan Condition: Stable Disposition: HOME Patient Education Materials: Normal Exam (ED) Referrals: Jaclyn Teran PA [Primary Care Provider] - If Needed Additional Instructions: DISCONTINUE THE HYDROCORTISONE FOR THE VULVOVAGINAL AREA. RESUME ALL OTHER PRIOR CARE/MEDICATIONS. - Billing Disposition and Condition Condition: STABLE Disposition: Home
== END 2018-06-05 14:15 | disposition home or self-care (01) ==
LOC: UCCORT 12:09
DX: Z00.00 Encounter for general adult medical examination without abnormal findings (principal); E07.9 Disorder of thyroid, unspecified; F79 Unspecified intellectual disabilities; Z95.810 Presence of automatic (implantable) cardiac defibrillator; Z91.048 Other nonmedicinal substance allergy status; Z79.82 Long term (current) use of aspirin
CPT/HCPCS: 99212; G0463

== ENCOUNTER 2018-07-01 09:21 | Emergency (ER) | payer MEDICARE, MEDICAID ==
[2018-07-01 10:22] VITALS: BP 100/54
--- NOTE | 2018-07-01 11:14 | RAD ---
Indication: Right foot pain. 3 views of the right foot demonstrates degenerative changes of the first metatarsophalangeal joint. There is no evidence of fracture. Inferior calcaneal spur is noted. No other fractures are identified. IMPRESSION: Degenerative changes of the first metatarsal phalangeal joint without fracture.
--- NOTE | 2018-07-01 11:43 | ED ---
Lower Extremity - HPI Summary HPI Summary: 77 yr old with MR points to right 1st MP as place where she had pain. No other history obtainable. Reportedly no trauma or falls. - History of Current Complaint Chief Complaint: UCLowerExtremity Stated Complaint: RIGHT FOOT PAIN Time Seen by Provider: 07/01/18 10:42 Hx Last Menstrual Period: n/a Pain Intensity: 3 - Allergies/Home Medications Allergies/Adverse Reactions: Allergies Allergy/AdvReac Type Severity Reaction Status Date / Time Adhesive Tape AdvReac Unknown Verified 07/01/18 10:14 Reaction Details Metal Jewelry AdvReac Unknown Uncoded 07/01/18 10:14 Reaction Details Home Medications: Home Medications Acetaminophen TAB* [Tylenol TAB*] 2 tab Q4HR PRN 07/01/18 [History Confirmed ] Alendronate Sodium 1 tab WEEKLY 07/01/18 [History Confirmed 07/01/18] Aspirin 81 mg CHEW TAB* 1 tab DAILY 07/01/18 [History Confirmed 07/01/18] Calcium Carbonate/Vitamin D3 [Calcium 600 + Vit D Tablet] 1 tab DAILY 07/01/18 [ History Confirmed 07/01/18] Cholecalciferol (Vitamin D3) [Vitamin D3] 1 tab DAILY 07/01/18 [History Confirmed 07/01/18] Digoxin TAB* [Lanoxin TAB*] 1 tab DAILY 07/01/18 [History Confirmed 07/01/18] Docusate CAP* [Colace Cap*] 2 cap QAM 07/01/18 [History Confirmed 07/01/18] Esomeprazole(NF) [Nexium(NF)] 1 tab DAILY 07/01/18 [History Confirmed 07/01/18] Fesoterodine (NF) [Toviaz (NF)] 1 tab DAILY 07/01/18 [History Confirmed 07/01/18 ] Levothyroxine TAB* [Synthroid 150 MCG TAB*] 1 tab DAILY 07/01/18 [History Confirmed 07/01/18] Loratadine 1 tab DAILY 07/01/18 [History Confirmed 07/01/18] Meloxicam 1 tab DAILY 07/01/18 [History Confirmed 07/01/18] Metoprolol Succinate XL TAB* [Toprol XL TAB*] 1 tab DAILY 07/01/18 [History Confirmed 07/01/18] Multivitamin [Multivitamins] 1 tab DAILY 07/01/18 [History Confirmed 07/01/18] Sertraline* [Zoloft*] 1 tab DAILY 07/01/18 [History Confirmed 07/01/18] Simvastatin 1 tab QPM 07/01/18 [History Confirmed 07/01/18] clonazePAM TAB(*) [Klonopin TAB(*)] 0.25 mg BID 07/01/18 [History Confirmed ] PMH/Surg Hx/FS Hx/Imm Hx Endocrine/Hematology History: Reports: Hx Thyroid Disease - Hypothyroidism Cardiovascular History: Reports: Hx Hypertension - Surgical History Surgery Procedure, Year, and Place: D and C 1983, 1988, pacemaker 2007, laminectomy 2007 for cyst. cataract surgery (bilateral) Infectious Disease History: No Infectious Disease History: Reports: 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 Denies: Hx Shingles, Traveled Outside the [place] in Last 30 Days - Family History Known Family History: Positive: Other - colon cancer - Social History Alcohol Use: None Substance Use Type: Reports: None Smoking Status (MU): Never Smoked Tobacco Have You Smoked in the Last Year: No Review of Systems Constitutional: Negative Positive: Other - right foot pain All Other Systems Reviewed And Are Negative: Yes Physical Exam Triage Information Reviewed: Yes Vital Signs On Initial Exam: Initial Vitals Temp Pulse Resp BP Pulse Ox 97.7 F 70 18 100/54 98 07/01/18 10:14 07/01/18 10:14 07/01/18 10:14 07/01/18 10:14 07/01/18 10:14 Vital Signs Reviewed: Yes Appearance: Positive: Well-Appearing, No Pain Distress Skin: Positive: Warm, Skin Color Reflects Adequate Perfusion Head/Face: Positive: Normal Head/Face Inspection Eyes: Positive: EOMI ENT: Positive: Normal ENT inspection Neck: Positive: Nontender Respiratory/Lung Sounds: Positive: Clear to Auscultation, Breath Sounds Present Cardiovascular: Positive: RRR. Negative: Murmur Abdomen Description: Negative: Distended Musculoskeletal: Positive: Normal, Strength/ROM Intact, Other - both feet symmetric, with symmetric pulse, color, size. No deformity. no tenderness. Neurological: Positive: Sensory/Motor Intact, Alert, Oriented to Person Place, Time, CN Intact II-III Psychiatric: Positive: Normal - Humble Coma Scale Best Eye Response: 4 - Spontaneous Best Motor Response: 6 - Obeys Commands Best Verbal Response: 5 - Oriented Coma Scale Total: 15 Diagnostics - Vital Signs Vital Signs Temp Pulse Resp BP Pulse Ox 07/01/18 10:14 97.7 F 70 18 100/54 98 - Laboratory Lab Statement: Any lab studies that have been ordered have been reviewed, and results considered in the medical decision making process. - Radiology foot right Xray Interpretation: Positive (See Comments) - DJD 1st MP joint. Radiology Interpretation Completed By: Radiologist Lower Extremity Course/Dx - Course Course Of Treatment: DJD 1st MP right foot. 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
== END 2018-07-01 11:50 | disposition home or self-care (01) ==
LOC: UCCORT 09:21
DX: M19.071 Primary osteoarthritis, right ankle and foot (principal); I10 Essential (primary) hypertension; E03.9 Hypothyroidism, unspecified; L23.0 Allergic contact dermatitis due to metals; L23.1 Allergic contact dermatitis due to adhesives; Z95.0 Presence of cardiac pacemaker; Z79.82 Long term (current) use of aspirin
CPT/HCPCS: 99212; G0463

== ENCOUNTER 2018-08-18 13:00 | Emergency (ER) | payer MEDICARE, MEDICAID ==
[2018-08-18 13:27] VITALS: BP 131/75
--- NOTE | 2018-08-18 13:35 | UC ---
UC General HPI - HPI Summary HPI Summary: Patient is a 77 year old woman, resident of [facility] who present today to the urgent care with her caregiver JOHN after she sustained a fall at the facility this morning. She usually uses a walker to walk that she was found laying down in her room. She has severe intellectual disability , so most of the history is obtained by the caregiver . She points to pain in her left hip denies any pain anywhere else, no other symptoms reported. No fever or chills reported - History of Current Complaint Chief Complaint: UCGeneralIllness Stated Complaint: S/P FALL Time Seen by Provider: 08/18/18 13:21 Hx Obtained From: Family/Supervisor [employer] - Her caregiver, JOHN Hx Last Menstrual Period: n/a Pain Intensity: 0 - Allergy/Home Medications Allergies/Adverse Reactions: Allergies Allergy/AdvReac Type Severity Reaction Status Date / Time No Known Allergies Allergy Verified 08/04/18 15:20 PMH/Surg Hx/FS Hx/Imm Hx - Additional Past Medical History Additional PMH: Severe intellectual disability Atrial fibrillation Hypertension Hypothyroidism Hyperlipidemia Osteoporosis GERD TIA CVA DJD, spinal stenosis Tardive dyskinesia Anxiety Pacemaker Previously Healthy: Yes - Surgical History Surgical History: Yes Surgery Procedure, Year, and Place: D and C 1983, 1988, pacemaker 2007, laminectomy 2007 for cyst. cataract surgery (bilateral) - Family History Known Family History: Positive: Other - colon cancer - Social History Alcohol Use: None Substance Use Type: None Smoking Status (MU): Never Smoked Tobacco Have You Smoked in the Last Year: No Household Exposure Type: Cigarettes - Immunization History Most Recent Influenza Vaccination: 06/26 Most Recent Tetanus Shot: 03/01/15 Most Recent Pneumonia Vaccination: 07/13/16 Vaccination Up to Date: Yes Review of Systems All Other Systems Reviewed And Are Negative: Yes Constitutional: Positive: Negative Skin: Positive: Negative Eyes: Positive: Negative ENT: Positive: Negative Respiratory: Positive: Negative Cardiovascular: Positive: Negative Gastrointestinal: Positive: Negative Genitourinary: Positive: Negative Musculoskeletal: Positive: Arthralgia - Left hip, Decreased ROM - Left hip Neurological: Positive: Negative Psychological: Positive: Negative Is Patient Immunocompromised?: No Physical Exam - Summary Physical Exam Summary: Physical Exam: patient examined in wheel chair Limited exam due to patient's severe intellectual disability. Const: Appears well. No signs of apparent distress present. Musculo: Ambulatory in a wheelchair Head/Face: Atraumatic, normocephalic on inspection. Eyes: EOMI and PERRLA in both eyes. Conjunctivae clear. No discharge noted ENT: Hearing normal Respiratory: Respirations are unlabored. Lungs clear to auscultation bilaterally, no wheezing , rhonchi or rales noted . CVS- RRR, S1 S2 normal, no murmur Extremities: Peripheral circulation is grossly normal. Pulses 2+ Abdomen : Soft non tender , nondistended , Bowel sounds present . No guarding , rebound tenderness or rigidity noted. Skin: No lesions or rash located on the upper extremities or on the lower extremities. Neuro: Cranial nerves II to XII intact, motor and sensory intact. DTR Intact bilaterally. Mood is normal. Affect is normal. Left hip: Reproduction of pain with internal and external rotation . Lumbar spine: no tenderness , some left paraspinal tenderness noted Triage Information Reviewed: Yes Vital Signs: Initial Vital Signs Temp 98.4 F 08/18/18 13:23 Pulse 106 08/18/18 13:23 Resp 22 08/18/18 13:23 BP 131/75 08/18/18 13:23 Pulse Ox 96 08/18/18 13:23 Vital Signs Reviewed: Yes Diagnostics - Radiology No standard instances Radiology Interpretation Completed By: Radiologist - x-rays of her left hip and AP pelvis: Final read:#. No radiographic evidence for LEFT hip fracture. As x- rays may be negative withnondisplaced hip fracture if there is persistent clinical concern MRI or in setting of contraindication to MRI or limitation in emergent access to MRI CT marisabel suggested. Course/Dx - Course Course Of Treatment: During the visit today, we obtained x-rays of her left hip and AP pelvis: Final read:#. No radiographic evidence for LEFT hip fracture. As x-rays may be negative withnondisplaced hip fracture if there is persistent clinical concern MRI or in setting of contraindication to MRI or limitation in emergent access to MRI CT marisabel suggested. I discussed the findings and further plan with her caregiver. And filled out the paperwork. We discussed that she should be monitored for any pain in any other area or if her hip pain gets worse. She should follow-up with her primary care doctor in 1 week and return to urgent care or ER if symptoms get worse. Her healthcare management expressed understanding . - Diagnoses Provider Diagnosis: Fall, Contusion Discharge - Sign-Out/Discharge Documenting (check all that apply): Patient Departure All imaging exams completed and their final reports reviewed: Yes - Discharge Plan Condition: Stable Disposition: HOME Patient Education Materials: Contusion in Adults (ED) Referrals: aJclyn Teran PA [Primary Care Provider] - 1 Week Additional Instructions: Tylenol as needed for pain. Follow up with your primary care doctor in 1 week Monitor for any pain, in any other area or if her hip pain is getting worse. Return to Urgent care / ER if symptoms get worse. - Billing Disposition and Condition Condition: STABLE Disposition: Home
== END 2018-08-18 14:32 | disposition home or self-care (01) ==
LOC: UCCORT 13:00
DX: T14.8XXA Other injury of unspecified body region, initial encounter (principal); W19.XXXA Unspecified fall, initial encounter; Y92.193 Bedroom in other specified residential institution as the place of occurrence of the external cause; Z04.3 Encounter for examination and observation following other accident; F72 Severe intellectual disabilities; Z95.0 Presence of cardiac pacemaker; I10 Essential (primary) hypertension
CPT/HCPCS: 99211; G0463

== ENCOUNTER 2018-12-13 17:55 | Emergency (ER) | payer MEDICARE, MEDICAID ==
[2018-12-13 19:24] VITALS: BP 106/60
--- NOTE | 2018-12-13 19:34 | UC ---
Minor Trauma HPI - HPI Summary HPI Summary: 78 year old female with cerebral palsy presents with caregiver reporting patient lost her balance earlier today while ambulating with her walker and fell backwards onto her buttocks. Denies hitting head or LOC. Caregiver states she was immediately assisted back up by other caretakers, was evaluated with no signs of injury, and she has been acting like herself with no complaints since that time. Patient presents for evaluation as per policy. Patient denies any pain or injury. - History of Current Complaint Chief Complaint: UCLowerExtremity Stated Complaint: PT FELL ON BUTTOCK Hx Obtained From: Family/Staff Forester Hx Last Menstrual Period: n/a Pain Intensity: 0 - Allergies/Home Medications Allergies/Adverse Reactions: Allergies Allergy/AdvReac Type Severity Reaction Status Date / Time No Known Allergies Allergy Verified 12/13/18 19:14 PMH/Surg Hx/FS Hx/Imm Hx Endocrine History: Hypothyroidism, Dyslipidemia Cardiovascular History: Hypertension GI/ History: Gastroesophageal Reflux, Other - Overactive bladder Neurological History: Other - Cerebral palsy - Surgical History Surgical History: Yes Surgery Procedure, Year, and Place: D and C 1983, 1988, pacemaker 2007, laminectomy 2007 for cyst. cataract surgery (bilateral) - Family History Known Family History: Positive: Other - colon cancer - Social History Occupation: Disabled Lives: Detention Alcohol Use: None Substance Use Type: None Smoking Status (MU): Never Smoked Tobacco Have You Smoked in the Last Year: No Household Exposure Type: Cigarettes - Immunization History Most Recent Influenza Vaccination: 06/26 Most Recent Tetanus Shot: 03/01/15 Most Recent Pneumonia Vaccination: 07/13/16 Vaccination Up to Date: Yes Review of Systems All Other Systems Reviewed And Are Negative: Yes Constitutional: Positive: Negative Skin: Negative: Bruising Eyes: Positive: Negative Respiratory: Positive: Negative Cardiovascular: Positive: Negative Gastrointestinal: Positive: Negative Genitourinary: Positive: Negative Motor: Negative: Weakness Neurovascular: Negative: Decreased Sensation Musculoskeletal: Negative: Myalgia, Other: - back or neck pain Neurological: Negative: Headache, Weakness, Paresthesia, Numbness Is Patient Immunocompromised?: No Physical Exam - Summary Physical Exam Summary: GENERAL APPEARANCE: Alert and cooperative, appears to be in no acute distress. HEAD: Atraumatic. normocephalic. NECK: Neck supple, non-tender. CARDIAC: Normal S1 and S2. No S3, S4 or murmurs. Rhythm is regular. There is no peripheral edema, cyanosis or pallor. Extremities are warm and well perfused. Capillary refill is less than 2 seconds. Peripheral pulses intact. LUNGS: Clear to auscultation without rales, rhonchi, wheezing or diminished breath sounds. ABDOMEN: Positive bowel sounds. Soft, nondistended, nontender. No guarding or rebound. No masses or hepatosplenomegally. MUSKULOSKELETAL: ROM intact to all extremities. No joint erythema or tenderness. Patient able to stand and bear weight with assistance. BACK: Examination of the spine reveals scoliosis and kyphophosis. No spinal or soft tissue tenderness or muscular spasm. NEUROLOGICAL: Strength and sensation symmetric and intact throughout. SKIN: Skin normal color, texture and turgor with no lesions or eruptions. Triage Information Reviewed: Yes Vital Signs: Initial Vital Signs Temp 99.1 F 12/13/18 19:20 Pulse 79 12/13/18 19:20 Resp 20 12/13/18 19:20 BP 106/60 12/13/18 19:20 Pulse Ox 98 12/13/18 19:20 Vital Signs Reviewed: Yes Minor Trauma Course/Dx - Course Course Of Treatment: 78 year old female with cerebral palsy presents with caregiver reporting patient lost her balance earlier today while ambulating with her walker and fell backwards onto her buttocks. Denies hitting head or LOC. Caregiver states she was immediately assisted back up by other caretakers, was evaluated with no signs of injury, and she has been acting like herself with no complaints since that time. Patient presents for evaluation as per policy. Patient denies any pain or injury. Afebrile. VSS. Exam was unremarkable for any injury. Patient was able to stand and bear weight with assistance. With no specific complaints, radiological studies were deferred at this time. She is to follow up with her PCP within 3 days. Anticipatory guidance and warning symptoms were reviewed with the caregiver. Verbalizes understanding and agrees with POC. - Differential Dx/Diagnosis Differential Diagnosis/HQI/PQRI: Contusion(s), Fracture, Strain Provider Diagnosis: Fall from standing Discharge - Sign-Out/Discharge Documenting (check all that apply): Patient Departure All imaging exams completed and their final reports reviewed: No Studies - Discharge Plan Condition: Stable Disposition: HOME Patient Education Materials: Fall Prevention for Older Adults (ED) Referrals: Jaclyn Teran PA [Primary Care Provider] - 3 Days Additional Instructions: Your exam in the clinic today showed no evidence of injury from the fall therefore x-rays were not indicated at this time. Follow up with your primary care provider in 3 days. Seek immediate medical attention in the emergency room if you have new onset of back pain, you are unable to bear weight or ambulate with assistance, or any concerning symptoms. - Billing Disposition and Condition Condition: STABLE Disposition: Home
== END 2018-12-13 19:59 | disposition home or self-care (01) ==
LOC: UCCORT 17:55
DX: Z04.3 Encounter for examination and observation following other accident (principal); G80.9 Cerebral palsy, unspecified; I10 Essential (primary) hypertension; W18.30XA Fall on same level, unspecified, initial encounter; Y92.9 Unspecified place or not applicable
CPT/HCPCS: 99212; G0463